=== PATIENT | female | born 1960 | race Asian ===

== ENCOUNTER 2017-02-19 20:20 | Emergency (ER) | payer BC, OTHER ==
[~2017-02-19] VITALS: Ht 160 cm; Wt 59.0 kg
[~2017-02-19 20:20] MED LIST: BENADRYL25 MG PO; PREDNISONE20 MG PO; RANITIDINE HCL150 MG PO
[2017-02-19 21:22] LABS: BASOPHILS % (AUTO) 0.9 % (0.0-2.0); EOSINOPHILS % (AUTO) 0.5 % (0.0-3.0); LYMPHOCYTES % (AUTO) 27.4 % (20.0-45.0); MEAN CORPUSCULAR HEMOGLOBIN 30.6 PG (27.0-31.0); MEAN CORPUSCULAR HGB CONC 33.7 G/DL (32.0-36.0); MEAN CORPUSCULAR VOLUME 91 FL (80-99); MEAN PLATELET VOLUME 6.6 FL (6.5-10.1); MONOCYTES % (AUTO) 6.3 % (1.0-10.0); NEUTROPHILS % (AUTO) 64.9 % (45.0-75.0); PLATELET COUNT 270 K/UL (150-450); RED BLOOD COUNT 4.56 M/UL (4.20-5.40); WHITE BLOOD COUNT 9.1 K/UL (4.8-10.8)
[2017-02-19 21:37] LABS: PROTHROMBIN TIME 10.7 SEC (9.30-11.50)
[2017-02-19 21:39] LABS: ALANINE AMINOTRANSFERASE 12 U/L (3-33); ALBUMIN/GLOBULIN RATIO 1.3 (1.0-2.7); ASPARTATE AMINO TRANSFERASE 21 U/L (5-40); CALCIUM 9.7 mg/dL (8.6-10.2); CARBON DIOXIDE 21 mEQ/L (20-30); CREATININE 0.9 mg/dL (0.5-0.9); GLOMERULAR FILTRATION RATE > 60 mL/min (>60); HEMOLYSIS 4; LIPASE 28 U/L (< 60); TOTAL PROTEIN 8.1 g/dL (6.6-8.7)
[2017-02-19 21:40] LABS: ANION GAP 19 (5-15); CHLORIDE 101 mEQ/L (98-107); POTASSIUM 3.4 mEQ/L (3.4-4.9); SODIUM 141 mEQ/L (135-145)
[2017-02-19 21:41] LABS: TROPONIN I < 0.30 ng/mL (<=0.30)
[2017-02-19 21:48] LABS: APPEARANCE,URINE CLEAR; KETONES,URINE 3+ (NEGATIVE); LEUKOCYTE ESTERASE ,URINE NEGATIVE (NEGATIVE); NITRITE,URINE NEGATIVE (NEGATIVE); PH,URINE 7 (4.5-8.0); PROTEIN,URINE NEGATIVE (NEGATIVE); UROBILINOGEN,URINE NORMAL MG/DL (0.0-1.0)
[2017-02-19] MEDS ORDERED: Metoclopramide 10mg/2ml Inj IVP ONE (22:30)
[2017-02-19] MEDS ORDERED: DiphenhydrAMINE 50mg/ml Inj IVP ONE (22:30)
[2017-02-19 22:52] VITALS: BP 159/82
[2017-02-19] MEDS ORDERED: BENTYL10 MG ORAL (23:33)
[2017-02-19] MEDS ORDERED: ZOFRAN4 M3 ORAL (23:33)
[2017-02-20 00:35] VITALS: BP 120/68
--- NOTE | 2017-02-20 00:45 | Emergency Room Report ---
History of Present Illness General Chief Complaint: Headache Source: Patient Present Illness HPI Patient's 56-year-old female who presented after increased headache. She gradual onset of symptoms in the past 3 days. Patient stated that she had been having headache for several days in row. She reported having chest discomfort. This is described as a tightness. She had some abdominal pain as well. She denied any black or bloody stools. She prior history of gastritis. Allergies: Coded Allergies: ASPIRIN (Verified Allergy, Unknown, RASH, 02/19/17) DEXLANSOPRAZOLE (Verified Allergy, Unknown, 02/19/17) LANSOPRAZOLE (Verified Allergy, Unknown, 02/19/17) Patient History Past Medical History: see triage record Last Menstrual Period: NONE Reviewed Nursing Documentation: PMH: Agreed, PSxH: Agreed Nursing Documentation-PMH Past Medical History: No Stated History Hx Gastrointestinal Problems: Yes Review of Systems All Other Systems: negative except mentioned in HPI Physical Exam Vital Signs Date Time Temp Pulse Resp B/P Pulse Ox O2 Delivery O2 Flow Rate FiO2 02/19/17 20:31 98.1 80 19 155/95 100 Room Air Sp02 EP Interpretation: reviewed, normal General Appearance: normal inspection, well appearing, no apparent distress, alert, GCS 15 Head: atraumatic ENT: normal ENT inspection, hearing grossly normal, normal voice Neck: normal inspection, full range of motion, supple, no bony tend Respiratory: normal inspection, lungs clear, normal breath sounds, no respiratory distress, no retraction, no wheezing Cardiovascular #1: regular rate, rhythm, no edema Gastrointestinal: normal inspection, normal bowel sounds, non tender, soft, no guarding, no hernia Genitourinary: no CVA tenderness Musculoskeletal: normal inspection, back normal, normal range of motion Neurologic: normal inspection, alert, responsive, speech normal Psychiatric: normal inspection, judgement/insight normal, mood/affect normal Skin: no rash, other - multiple circular patches to upper back c/w cupping Medical Decision Making Diagnostic Impression: Primary Impression: Headache Additional Impression: Dehydration ER Course Patient presented for headache and chest pain. Differential diagnoses included but was not limited to skull fracture, subarachnoid hemorrhage, meningitis, aneurysm, mass lesion, intracranial hemorrhage. Because of complexity of patient's case laboratory testing and imaging studies were ordered. I EKG interpreted by me showed normal sinus rhythm without acute ST or T wave changes. Laboratory studies showed normal troponin. I given the patient's prolonged time of symptoms. Unlikely to be likely be a cardiac event.A CT the head read by radiologist no evidence of acute hemorrhage or CVA there were noted be some metallic object in the scalp Labs Test 02/19/17 20:59 02/19/17 21:10 White Blood Count 9.1 K/UL (4.8-10.8) Red Blood Count 4.56 M/UL (4.20-5.40) Hemoglobin 14.0 G/DL (12.0-16.0) Hematocrit 41.4 % (37.0-47.0) Mean Corpuscular Volume 91 FL (80-99) Mean Corpuscular Hemoglobin 30.6 PG (27.0-31.0) Mean Corpuscular Hemoglobin Concent 33.7 G/DL (32.0-36.0) Red Cell Distribution Width 11.0 % (11.6-14.8) Platelet Count 270 K/UL (150-450) Mean Platelet Volume 6.6 FL (6.5-10.1) Neutrophils (%) (Auto) 64.9 % (45.0-75.0) Lymphocytes (%) (Auto) 27.4 % (20.0-45.0) Monocytes (%) (Auto) 6.3 % (1.0-10.0) Eosinophils (%) (Auto) 0.5 % (0.0-3.0) Basophils (%) (Auto) 0.9 % (0.0-2.0) Prothrombin Time 10.7 SEC (9.30-11.50) Prothromb Time International Ratio 1.0 (0.9-1.1) Activated Partial Thromboplast Time 27 SEC (23-33) Sodium Level 141 mEQ/L (135-145) Potassium Level 3.4 mEQ/L (3.4-4.9) Chloride Level 101 mEQ/L (98-107) Carbon Dioxide Level 21 mEQ/L (20-30) Anion Gap 19 (5-15) Blood Urea Nitrogen 11 mg/dL (7-23) Creatinine 0.9 mg/dL (0.5-0.9) Estimat Glomerular Filtration Rate > 60 mL/min (>60) Glucose Level 115 mg/dL (74-106) Calcium Level 9.7 mg/dL (8.6-10.2) Total Bilirubin 0.8 mg/dL (0.0-1.2) Aspartate Amino Transf (AST/SGOT) 21 U/L (5-40) Alanine Aminotransferase (ALT/SGPT) 12 U/L (3-33) Alkaline Phosphatase 53 U/L (35-104) Troponin I < 0.30 ng/mL (<=0.30) Total Protein 8.1 g/dL (6.6-8.7) Albumin 4.7 g/dL (3.5-5.2) Globulin 3.4 g/dL Albumin/Globulin Ratio 1.3 (1.0-2.7) Lipase 28 U/L (< 60) Urine Color Pale yellow Urine Appearance Clear Urine pH 7 (4.5-8.0) Urine Specific [place] 1.010 (1.005-1.035) Urine Protein Negative (NEGATIVE) Urine Glucose (UA) Negative (NEGATIVE) Urine Ketones 3+ (NEGATIVE) Urine Occult Blood Negative (NEGATIVE) Urine Nitrite Negative (NEGATIVE) Urine Bilirubin Negative (NEGATIVE) Urine Urobilinogen Normal MG/DL (0.0-1.0) Urine Leukocyte Esterase Negative (NEGATIVE) Last Vital Signs Date Time Temp Pulse Resp B/P Pulse Ox O2 Delivery O2 Flow Rate FiO2 02/19/17 22:52 98.1 76 16 159/82 100 Room Air Status: improved Disposition: HOME, SELF-CARE Condition: Stable Scripts Dicyclomine Hcl* (BENTYL*) 10 Mg Capsule 10 MG ORAL FOUR TIMES A DAY, #20 CAP Prov: Nav Bran 02/19/17 Ondansetron* (ZOFRAN*) 4 Mg Tablet 4 MG ORAL Q6H Y for Nausea & Vomiting, #14 TAB Prov: Nav Bran 02/19/17 Patient Instructions: General Headache Without Cause, Dehydration, Adult Nav Bran Feb 20, 2017 00:45
--- NOTE | 2017-02-20 09:05 | Diagnostic Imaging Report ---
Indication: PAIN Technique: Continuous helical CT scanning of the head was performed without intravenous contrast material. Axial and coronal 5 mm sections were generated. Radiation dose was minimized using automated exposure control Dose: Total Dose Length Product - DLP mGycm. Volume CT Dose Index - CTDIvol(s) 70.38 mGy. Comparison: None Findings: The ventricular system is normal in size and configuration. There is no shift of midline structures. No abnormal extra-axial fluid collections are noted. There is no evidence of intracerebral bleeding. No other abnormal high or low density areas are noted within the brain. 2 small foreign bodies in the high parietal scalp may represent retained acupuncture needles Impression: Normal CT scan of the head without contrast material. Possible acupuncture needles in the scalp This agrees with the preliminary interpretation provided overnight by Dr. Martinez The CT scanner at [facility] is accredited by the [employer] and the scans are performed using protocols designed to limit radiation exposure to as low as reasonably achievable to attain images of sufficient resolution adequate for diagnostic evaluation.
--- NOTE | 2017-02-20 16:18 | Diagnostic Imaging Report ---
Indication: SOB Technique: One view of the chest Comparison: none Findings: 14 mm ovoid left basilar density, most likely but not definitively a nipple shadow. Lungs and pleural spaces are otherwise clear. Normal heart size. Impression: Left basilar nodule, most likely a nipple shadow. Recommend repeat chest radiograph with nipple markers No acute process otherwise Findings discussed by phone with Dr. Jaimes at the time of interpretation
--- NOTE | 2017-02-20 16:25 | Cardiology Report ---
APPROVED REPORT EKG Measurement Heart [id number] Normal sinus rhythm Normal ECG
== END 2017-02-20 00:35 | disposition home or self-care (01) ==
LOC: EMR 20:40
DX: R51 Headache (principal); E86.0 Dehydration; Z88.6 Allergy status to analgesic agent; Z88.8 Allergy status to other drugs, medicaments and biological substances
CPT/HCPCS: 36415; 70450; 71010; 80053; 81003; 83690; 84484; 85025; 85610; 85730; 93005; 96374; 96375; 99284; J1200; J2405; J2765